=== PATIENT | female | born 1985 | race Native Hawaiian/Other Pacific Islander ===

== ENCOUNTER 2019-06-05 20:59 | Emergency (ER) | payer SELFPAY ==
[2019-06-05 21:07] VITALS: BP 111/64
--- NOTE | 2019-06-05 21:09 | Event Note ---
ED Screening Note Date of service: 06/05/19 Time: 21:08 ED Screening Note: 33 y o female presents with lac to right thumb today while cleaning a glass at home PODIATRIST ASSISTANT unsure of tet up to date 2-3 cm lac to inner thumb This initial assessment/diagnostic orders/clinical plan/treatment(s) is/are subject to change based on patients health status, clinical progression and re- assessment by fellow clinical providers in the ED. Further treatment and workup at subsequent clinical providers discretion. Patient/guardian urged not to elope from the ED as their condition may be serious if not clinically assessed and managed. Initial orders include: acc eval for lac repair
== END 2019-06-05 22:50 | disposition left against medical advice (07) ==
LOC: ED 20:59
DX: S61.011A Laceration without foreign body of right thumb without damage to nail, initial encounter (principal); Z53.21 Procedure and treatment not carried out due to patient leaving prior to being seen by health care provider; X58.XXXA Exposure to other specified factors, initial encounter; Y93.89 Activity, other specified; Y92.89 Other specified places as the place of occurrence of the external cause; Y99.8 Other external cause status